=== PATIENT | female | born 1990 | race African-American/Black ===

== ENCOUNTER 2021-05-17 11:44 | Emergency (ER) | payer MEDICAID ==
[~2021-05-17] VITALS: Ht 175.3 cm; Wt 91.0 kg
[2021-05-17] MEDS ORDERED: KETOROLAC 15MG/ML VIAL IV ONE (14:15)
[2021-05-17] MEDS ORDERED: ACET-2708 MT (15:02)
[2021-05-17 15:31] VITALS: BP 134/78
== END 2021-05-17 15:33 | disposition home or self-care (01) ==
LOC: ER 11:44
DX: M25.551 Pain in right hip (principal)
CPT/HCPCS: 73060; 73080; 96374; 99284; J1885

== ENCOUNTER 2021-06-26 08:48 | Emergency (ER) | payer MEDICAID, OTHER ==
[~2021-06-26] VITALS: Ht 162.6 cm; Wt 91.0 kg
[~2021-06-26 08:48] MED LIST: ACET-2708 MT
[2021-06-26 09:37] VITALS: BP 132/63
== END 2021-06-26 09:38 | disposition home or self-care (01) ==
LOC: ER 08:52
DX: B34.8 Other viral infections of unspecified site (principal); F12.10 Cannabis abuse, uncomplicated
CPT/HCPCS: 99281